=== PATIENT | female | born 1965 ===

== ENCOUNTER 2020-08-28 11:15 | Inpatient (IN) | payer OTHER ==
[~2020-08-28] VITALS: Ht 172.7 cm; Wt 73.0 kg
[2020-08-28] MEDS ORDERED: LEVO-T125 MCG PO (14:27)
[2020-08-28] MEDS ORDERED: METFORMIN HCL500 M3 PO (14:27)
[2020-08-28] MEDS ORDERED: COZAAR100 MG PO (14:27)
[2020-09-09] MEDS ORDERED: OXYC1TAB9 PO (14:31)
[2020-09-09] MEDS ORDERED: INTESTINEX680 M1 PO (14:31)
== END 2020-09-09 16:20 | disposition home or self-care (01) | DRG 330 ==
LOC: SURH 09-04 07:00 → O/R 09-04 12:59 → SURH 09-04 19:01
PROVIDERS: Obstetrics & Gynecology Gynecologic Oncology; ADMIT Surgery; ATTEND Surgery
PROC: 0DJD8ZZ Inspection of Lower Intestinal Tract, Via Natural or Artificial Opening Endoscopic (ICD-10-PCS; 2020-09-04)
PROC: 0UT94ZZ Resection of Uterus, Percutaneous Endoscopic Approach (ICD-10-PCS; 2020-09-04)
PROC: 0UT74ZZ Resection of Bilateral Fallopian Tubes, Percutaneous Endoscopic Approach (ICD-10-PCS; 2020-09-04)
PROC: 0UT24ZZ Resection of Bilateral Ovaries, Percutaneous Endoscopic Approach (ICD-10-PCS; 2020-09-04)
PROC: 07TC4ZZ Resection of Pelvis Lymphatic, Percutaneous Endoscopic Approach (ICD-10-PCS; 2020-09-04)
PROC: 0DTN4ZZ Resection of Sigmoid Colon, Percutaneous Endoscopic Approach (ICD-10-PCS; principal; 2020-09-04 07:00)
PROC: 07TC4ZZ Resection of Pelvis Lymphatic, Percutaneous Endoscopic Approach (ICD-10-PCS; 2020-09-04 07:00)
PROC: 30233N1 Transfusion of Nonautologous Red Blood Cells into Peripheral Vein, Percutaneous Approach (ICD-10-PCS; 2020-09-08)
DX: C19 Malignant neoplasm of rectosigmoid junction (principal); C77.5 Secondary and unspecified malignant neoplasm of intrapelvic lymph nodes; N80.0 Endometriosis of uterus; N72 Inflammatory disease of cervix uteri; D25.2 Subserosal leiomyoma of uterus; D25.1 Intramural leiomyoma of uterus; Z20.828 Contact with and (suspected) exposure to other viral communicable diseases; D50.0 Iron deficiency anemia secondary to blood loss (chronic)

== ENCOUNTER 2020-10-13 06:00 | Day surgery (SDC) | payer OTHER ==
[~2020-10-13 06:00] MED LIST: COZAAR100 MG PO; INTESTINEX680 M1 PO; LEVO-T125 MCG PO; METFORMIN HCL500 M3 PO; OXYC1TAB9 PO
[2020-10-13] MEDS ORDERED: ULTRACET PO (08:16)
== END 2020-10-13 11:29 | disposition home or self-care (01) ==
LOC: CIR.AMB 06:00
PROVIDERS: ATTEND Surgery
DX: C18.6 Malignant neoplasm of descending colon (principal); Z20.828 Contact with and (suspected) exposure to other viral communicable diseases
CPT/HCPCS: 36561; C1751

== ENCOUNTER 2023-12-29 06:00 | Day surgery (SDC) | payer OTHER ==
[2023-12-22 11:00] LABS: HEMATOCRIT 40.4 % (36.0-45.00); HEMOGLOBIN 13.5 g/dL (12.0-15.00); MEAN CELL VOLUME 91.2 fL (80.00-100.00); MEAN CORPUSCULAR HEMOGLOBIN 30.5 pg (27.00-32.0); MEAN CORPUSCULAR HGB CONC 33.4 g/dl (32.0-36.0); PLATELET COUNT 360 K/uL (150-450); RED BLOOD COUNT 4.43 M/uL (4.00-6.00); RED CELL DISTRIBUTION WIDTH 13.9 % (11.5-14.5)
[2023-12-22 11:04] LABS: URINE APPEARANCE Clear; URINE BILIRRUBIN Negative (NEGATIVE); URINE BLOOD Negative; URINE COLOR Yellow; URINE GLUCOSE Negative (NEGATIVE); URINE LEUKOCYTE Small; URINE NITRATE Negative; URINE PROTEIN Negative (NEGATIVE); URINE UROBILINOGEN 0.2 E.U./dl
[2023-12-22 11:05] LABS: URINE BACTERIA 394.3 uL (0.0-1933); URINE EPITHELIAL CELLS 19.4 uL (0.0-38.8); URINE WBC 28.4 uL (0.0-23.2)
[2023-12-22 11:29] LABS: INR 0.94; PARTIAL THROMBOPLASTIN TIME 27.4 SECONDS (22.0-34.0); PROTHROMBIN TIME 9.9 SECONDS (9.0-11.5)
[2023-12-22 12:10] LABS: ALBUMIN 4.1 gm/dL (3.4-5.0); BILIRUBIN TOTAL 0.41 mg/dL (0.3-1.2); CALCIUM 9.4 mg/dL (8.5-10.1); CREATININE SERUM 0.64 mg/dL (0.55-1.02); GFR 95.31; GLOBULINA 3.9 G/DL (2.4-3.5); POTASSIUM 4.23 mEq/L (3.5-5.1)
[~2023-12-29 06:00] MED LIST changes: +ULTRACET PO
[2023-12-29] MEDS ORDERED: CEFAZOLIN SODIUM 1,000 MG VIAL ONE (06:55)
[2023-12-29] MEDS ORDERED: BUPIVACAINE HCL/PF 0.5% 30ML ML ONE (07:27)
[2023-12-29] MEDS ORDERED: CEFAZOLIN SODIUM 1,000 MG VIAL IV ONE (08:00)
[2023-12-29] MEDS ORDERED: BUPIVACAINE HCL/PF 0.5% 30ML ML IJ ONE (08:00)
[2023-12-29] MEDS ORDERED: TRAM1TAB98 PO (08:13)
== END 2023-12-29 11:15 | disposition home or self-care (01) ==
LOC: CIR.AMB 06:00
PROVIDERS: ATTEND Surgery
DX: C18.6 Malignant neoplasm of descending colon (principal)